=== PATIENT | female | born 1965 | race Caucasian/White ===

== ENCOUNTER 2017-08-27 11:57 | Emergency (ER) | payer BC ==
--- NOTE | 2017-08-27 13:16 | RAD ---
Indication: Right shoulder injury. 3 views of the right shoulder demonstrates AC joint arthritis. There is impacted fracture of the right humeral head. No significant displacement is noted. IMPRESSION: Impacted fracture surgical neck of the right humerus.
--- NOTE | 2017-08-27 13:17 | RAD ---
Indication: Right clavicle injury. 2 views of the right clavicle demonstrates no fracture of the clavicle. Impacted fracture of the right humeral neck is noted. IMPRESSION: Impacted fracture right humeral neck. No fracture of the clavicle is noted.
--- NOTE | 2017-08-27 13:21 | RAD ---
INDICATION: Left ankle injury. COMPARISON: Comparison is made with a prior x-ray study of the left foot from May 14, 2014. TECHNIQUE: 3 views of the left ankle were obtained. FINDINGS: There is mild diffuse soft tissue swelling. There is deformity of the distal diaphysis and metaphysis of the fibula most consistent with an old healed fracture. In addition there is a small curvilinear density present adjacent to the distal fibular tip consistent with a fracture fragment age indeterminate. No other fractures are seen. IMPRESSION: 1. OLD HEALED FRACTURE OF THE DISTAL FIBULA. 2. CURVILINEAR DENSITY ADJACENT TO THE FIBULAR TIP CONSISTENT WITH A SMALL AVULSION FRACTURE FRAGMENT, AGE INDETERMINATE.
[2017-08-27] MEDS ORDERED: traMADol TAB* 50 MG PO ONE (13:39)
--- NOTE | 2017-08-27 13:52 | ED ---
Upper Extremity Pain - HPI Summary HPI Summary: Patient fell down stairs outside, had her right arm above her head and thinks she landed on it, heard a pop when she moved her arm back down. thinks it "may have gone back into place" pt has right arm pain, clavicle pain on palpation and think she rolled her left ankle. Appears to be a FOOSH injury. Denies fevers, sweats, chills, diaphoresis. Denies temperature, color changes or numbness or tingling. Pulses +2 bilaterally and cap refill < 2 sec. Hx of fibromyalgia to which she takes 50mg tramadol 3x daily and is managed by the pain clinic. Denies any other pain after fall including head injury or LOC. Denies neuro deficits. - History of Current Complaint Chief Complaint: EDExtremityUpper Stated Complaint: RIGHT SHOULDER PAIN, FALL Time Seen by Provider: 08/27/17 12:15 Hx Obtained From: Patient Mechanism Of Injury: Other - FOOSH Onset/Duration: Started Hours Ago Timing: Constant Severity Initially: Moderate Severity Currently: Moderate Pain Location: Shoulder Character: Aching Aggravating Factor(s): Movement, Internal/External Rotation, Abduction Alleviating Factor(s): Rest, Ice Associated Signs & Symptoms: Positive: Negative Related History: Dominant Hand Right - Risk Factors Non-Orthopedic Risk Factor: Negative DVT Risk Factors: Negative Septic Arthritis Risk Factor: Negative Compartment Syndrome Risk Factors: Pain - Allergies/Home Medications Allergies/Adverse Reactions: Allergies Allergy/AdvReac Type Severity Reaction Status Date / Time Gabapentin AdvReac Fatigue Verified 07/01/17 08:50 Pregabalin [From Lyrica] AdvReac Unknown Verified 07/01/17 08:50 Reaction Details PMH/Surg Hx/FS Hx/Imm Hx Previously Healthy: Yes Endocrine/Hematology History: Reports: Hx Diabetes - CONTROLLED BY DIET Denies: Hx Sickle Cell Disease Cardiovascular History: Denies: Hx Hypertension, Hx Pacemaker/ICD, Other Cardiovascular Problems/ Disorders Respiratory History: Reports: Hx Asthma - LIGHT DUE TO ALLERGIES Denies: Other Respiratory Problems/Disorders GI History: Denies: Other GI Disorders History: Reports: Hx Kidney Stones Denies: Hx Renal Disease, Other Problems/Disorders Musculoskeletal History: Reports: Hx Arthritis - IN FEET, Hx Fibromyalgia Denies: Other Musculoskeletal History Sensory History: Reports: Hx Contacts or Glasses Denies: Hx Cataracts, Hx Eye Injury, Hx Eye Prosthesis, Hx Glaucoma, Hx Legally Blind, Hx Macular Degeneration, Hx Vision Problem, Hx Deafness, Hx Hearing Aid, Hx Hearing Problem Opthamlomology History: Reports: Hx Contacts or Glasses Denies: Hx Cataracts, Hx Eye Injury, Hx Eye Prosthesis, Hx Glaucoma, Hx Legally Blind, Hx Macular Degeneration, Hx Vision Problem Neurological History: Denies: Hx Dementia, Hx Developmental Delay, Hx Headaches, Hx Migraine, Hx Nerve Disease, Hx Seizures, Hx Spinal Cord Injury, Hx Transient Ischemic Attacks (TIA), Other Neuro Impairments/Disorders Psychiatric History: Denies: Hx Panic Disorder - Cancer History Hx Chemotherapy: No Hx Radiation Therapy: No - Surgical History Surgery Procedure, Year, and Place: VARICOSITY - 2005 [place]. TUBAL LIGATION - 1996 [facility] [place]. TONSILS Hx Anesthesia Reactions: No - Immunization History Hx Pertussis Vaccination: No Immunizations Up to Date: Unable to Obtain/Confirm Infectious Disease History: No Infectious Disease History: Reports: History Other Infectious Disease - C. Diff in January 2016 Denies: Hx of Known/Suspected MRSA, Hx Shingles, Hx Tuberculosis, Hx Known/ Suspected VRE, Hx Known/Suspected VRSA, Traveled Outside the [place] in Last 30 Days - Social History Occupation: Unemployed Lives: With Family Alcohol Use: None Hx Substance Use: No Substance Use Type: Reports: None Substance Use Comment - Amount & Last Used: tramadol Hx Tobacco Use: No Smoking Status (MU): Never Smoked Tobacco Have You Smoked in the Last Year: No Review of Systems Constitutional: Negative Negative: Fever, Chills, Fatigue, Skin Diaphoresis Eyes: Negative Cardiovascular: Negative Respiratory: Negative Genitourinary: Negative Positive: no symptoms reported, see HPI Positive: Arthralgia - right shoulder pain Skin: Negative Neurological: Negative All Other Systems Reviewed And Are Negative: Yes Physical Exam Triage Information Reviewed: Yes Vital Signs On Initial Exam: Initial Vitals Temp Pulse Resp BP Pulse Ox 97.2 F 74 20 94/58 94 08/27/17 11:59 08/27/17 11:59 08/27/17 11:59 08/27/17 11:59 08/27/17 11:59 Vital Signs Reviewed: Yes Appearance: Positive: Well-Appearing, Well-Nourished Skin: Positive: Warm, Skin Color Reflects Adequate Perfusion Head/Face: Positive: Normal Head/Face Inspection Eyes: Positive: EOMI, LUPE, Conjunctiva Clear Neck: Positive: Supple, No Lymphadenopathy Respiratory/Lung Sounds: Positive: Clear to Auscultation, Breath Sounds Present Cardiovascular: Positive: RRR, Pulses are Symmetrical in both Upper and Lower Extremities Musculoskeletal: Positive: Limited @ - abduction of the right shoulder Psychiatric: Positive: Normal AVPU Assessment: Alert - [place] Coma Scale Coma Scale Total: 15 Diagnostics - Vital Signs Vital Signs Temp Pulse Resp BP Pulse Ox 08/27/17 11:59 97.2 F 74 20 94/58 94 - Laboratory Lab Statement: Any lab studies that have been ordered have been reviewed, and results considered in the medical decision making process. Course/Dx - Course Course Of Treatment: Patient presents to the ED after FOOSH injury to the rigth arm. She ntoes to immediate pain in the upper arm most notable just inferior to the right greater tubercle with no pain immediatley over the tuberosity or scapula. She arrives in adduction and comfortable if kept in adduction. Denies numbness, tingling, color or temperature changes. D/t adduction of the arm, NV compromise of the axillary artery or brachial plexus does not appear to be involved. She is given a sling and tramadol 50mg. Denies other pain or injuries. IMPRESSION: Impacted fracture surgical neck of the right humerus. No significant displacement noted, so probable class A fracture. Dr. Price called at 1:45pm for consult who suggests outpatient follow up with sling. She is given pain management. Although she takes tramadol 50mg three times dialy for her fibromyalgia, I have suggested she can take up to 50mg four times daily and have given her a prescipriton to fill early if needed. Pharmacy called and confirmed they will not fill today as she recently had a 90 tab refill, but can refill as early as 09/19/17. Patient called to make aware. She is referred to Dr. Price who agrees to see her tomorrow or later this week. Sling given in ED. Encouraged ice. - Diagnoses Differential Diagnosis/HQI/PQRI: Positive: Fracture (Open), Fracture (Closed) Provider Diagnoses: Shoulder fracture Discharge - Discharge Plan Condition: Stable Disposition: HOME Prescriptions: traMADol TAB* [Ultram*] 25 mg PO Q6H PRN #20 tab MDD 4 PRN Reason: Pain Patient Education Materials: Arm Fracture in Adults (ED) Referrals: Aquilino Wang MD [Primary Care Provider] - Gala Price MD [Medical Doctor] - Additional Instructions: Ice Keep the shoulder by your side and in sling Ibuprofen 600mg three times daily Tramadol 50mg four times daily for pain Follow up with Dr. Price - call today for appt
[2017-08-27 14:27] VITALS: BP 108/74
== END 2017-08-27 14:25 | disposition home or self-care (01) ==
LOC: ED 11:57
DX: S42.211A Unspecified displaced fracture of surgical neck of right humerus, initial encounter for closed fracture (principal); W19.XXXA Unspecified fall, initial encounter; Y92.9 Unspecified place or not applicable; M79.7 Fibromyalgia
CPT/HCPCS: 99282; A9270-GY